=== PATIENT | male | born 1945 | race Caucasian/White ===

== ENCOUNTER 2022-02-04 12:56 | Outpatient (CLI) | payer MEDICARE, OTHER | END 2022-02-04 12:57 | disposition home or self-care (01) | LOC: TBSIIMAG 12:56 → SJX 12:57 | PROVIDERS: ATTEND Specialist | DX: S32.010A Wedge compression fracture of first lumbar vertebra, initial encounter for closed fracture (principal); M43.17 Spondylolisthesis, lumbosacral region; M48.07 Spinal stenosis, lumbosacral region | CPT/HCPCS: 72148 ==